=== PATIENT | female | born 2005 | race Caucasian/White ===

== ENCOUNTER 2024-04-05 23:49 | Emergency (ER) | payer BC, SELFPAY ==
[2024-04-06] MEDS ORDERED: Ondansetron PF 4 MG/2 ML Vial ONE (00:06)
[2024-04-06 00:33] LABS: #Basophils 0.05 10x3/uL (0.0-0.2); %Basophils 0.5 % (0.0-1.0); %Lymphocytes 48.6 % (28.0-48.0); %Monocytes 6.1 % (0.0-4.0); %Neutrophils 43.4 % (31.0-61.0); Hematocrit 39.2 % (36.0-47.0); Hemoglobin 12.8 g/dL (12.0-16.0); Mean Corpuscular HGB CONC 32.7 g/dL (32.0-36.0); Mean Corpuscular Hemoglobin 26.1 pg (25.0-35.0); Mean Corpuscular Volume 79.8 fL (78.0-98.0); Mean Platelet Volume 10.3 fL (7.4-10.4); Platelet Count 260 10x3/uL (130-400); RBC Distribution Width 13.7 % (11.5-14.5); Red Blood Cell (RBC) Count 4.91 mill/uL (4.00-5.20)
[2024-04-06 00:59] LABS: Lipase 27 U/L (8-78)
[2024-04-06 01:00] LABS: ALT (SGPT) 9 U/L (8-55); AST (SGOT) 16 U/L (5-30); Albumin 4.6 g/dL (3.5-5.0); Alkaline Phosphatase 94 U/L (40-100); Anion Gap 19 mmol/L (10-20); BUN (Urea Nitrogen) 6 mg/dL (8.4-21.0); Bilirubin, Total 0.3 mg/dL (0.2-1.2); Calc. Creatinine Clearance 0 mL/min (70-130); Calcium 9.2 mg/dL (7.8-10.44); Carbon Dioxide 16 mmol/L (22-29); Chloride 110 mmol/L (98-107); Estimated GFR 126; Globulin 3.2 g/dL (2.4-3.5); Glucose 107 mg/dL (70-105); Potassium 2.7 mmol/L (3.5-5.1); Protein, Total 7.8 g/dL (6.0-8.3); Sodium 142 mmol/L (136-145)
[2024-04-06 01:01] LABS: Acetaminophen Less than 10 mcg/mL (Less than 10); Alcohol 170.9 mg/dL (Less than 10); Salicylate Less than 8.0 mg/dL (Less than 8.0)
[2024-04-06] MEDS ORDERED: Potassium Chloride 20 MEQ TAB ONE (01:29)
== END 2024-04-06 02:12 | disposition home or self-care (01) ==
LOC: ERS 23:49
DX: F10.129 Alcohol abuse with intoxication, unspecified (principal); Z55.6 Problems related to health literacy; Y90.6 Blood alcohol level of 120-199 mg/100 ml
CPT/HCPCS: 36416; 80053; 80307; 83690; 85025; 96361; 96374; J2405